=== PATIENT | male | born 1960 | race American Indian/Alaskan Native ===

== ENCOUNTER 2018-09-26 10:41 | Emergency (ER) | payer OTHER ==
[2018-09-26 10:54] VITALS: BP 150/93
[2018-09-26] MEDS ORDERED: TORADOL IM ONE (10:54)
--- NOTE | 2018-09-26 11:28 | Emergency Department Report ---
ED Fall HPI - General Chief Complaint: Fall Stated Complaint: BACK/HIP PAIN Time Seen by Provider: 09/26/18 10:49 Source: patient, EMS Mode of arrival: Stretcher Limitations: No Limitations - History of Present Illness Initial Comments: 58-year-old male the past medical hypertension and chronic back pain brought in the [facility] or ground-level fall this morning at the [facility]. Patient states she slipped and fell backwards. No head injury or LOC. He also denies neck pain, weakness, paresthesias. Pain is rated 10/10 in intensity greatest or back and right hip. Pain is worse with movement and palpation. No alleviating factors reported. Denies previous right hip injury. - Related Data Previous Rx's Medication Instructions Recorded Last Taken Type Ibuprofen [Motrin] 800 mg PO Q8HR PRN #30 tablet 09/26/18 Unknown Rx Allergies Allergy/AdvReac Type Severity Reaction Status Date / Time No Known Allergies Allergy Unverified 09/26/18 10:46 ED Review of Systems ROS: Stated complaint: BACK/HIP PAIN Other details as noted in HPI Comment: All other systems reviewed and negative ED Past Medical Hx - Past Medical History Previous Medical History?: Yes Hx Hypertension: Yes Additional medical history: Chronic back pain - Surgical History Past Surgical History?: No - Social History Smoking Status: Former Smoker Substance Use Type: None - Medications Home Medications: Home Medications Medication Instructions Recorded Confirmed Last Taken Type Ibuprofen [Motrin] 800 mg PO Q8HR PRN #30 tablet 09/26/18 Unknown Rx ED Physical Exam - General Limitations: No Limitations - Other Other exam information: General: No limitations, patient is alert in no acute distress Head exam: Atraumatic, normocephalic Eyes exam: Normal appearance ENT: Moist mucous membrane Neck exam: Normal inspection, full range of motion, no meningismus nontender Respiratory exam: Clear to auscultation bilateral, no wheezes, rales, crackles Cardiovascular: Normal rate and rhythm, normal heart sounds Abdomen: Soft, nondistended, and nontender, with normal bowel sounds, no rebound, or guarding Extremity: No deformity, no shortening, tenderness to right hip and pain with passive movement. 2+ DP pulse Back: Normal Inspection, full range of motion, diffuse midline and bilateral paraspinal muscle tenderness Neurologic: Alert, oriented x3, cranial nerves intact, no motor or sensory deficit Psychiatric: normal affect, normal mood Skin: Warm, dry, intact ED Course Vital Signs 09/26/18 09/26/18 09/26/18 10:43 10:53 11:08 Temperature 97.9 F Pulse Rate 81 Respiratory 16 16 16 Rate Blood Pressure 150/93 O2 Sat by Pulse 100 Oximetry ED Medical Decision Making - Radiology Data Radiology results: report reviewed X-ray right hip. Right hip abnormality. Severe osteoarthritis of the hips FINAL REPORT EXAM: XR SPINE LUMBOSACRAL 2-3V HISTORY: back pain s/p slip and fall TECHNIQUE: AP, lateral and lumbosacral spot views of the lumbar spine. PRIORS: None. FINDINGS: There are five lumbar type vertebral bodies. Normal alignment. No compression fracture. Anterior osteophyte formations are seen throughout the lumbar spine. There is disc space narrowing at L5-S1. Multilevel facet arthropathy is seen. The paravertebral soft tissues are normal. IMPRESSION: 1. No acute lumbar spine abnormality. 2. Multilevel degenerative disc disease and facet arthropathy of the lumbar spine. - Medical Decision Making No acute fracture identified. Patient given Toradol in ED Patient will be discharged on Motrin back to the [facility] - Differential Diagnosis fracture, contusion, sprain Critical Care Time: No Critical care attestation.: If time is entered above; I have spent that time in minutes in the direct care of this critically ill patient, excluding procedure time. ED Disposition Clinical Impression: Fall, Back contusion, Strain of right hip, Arthritis Disposition: TO HOME OR SELFCARE Is pt being admited?: No Does the pt Need Aspirin: No Condition: Stable Instructions: Acute Low Back Pain (ED), Hip Sprain (ED) Additional Instructions: Take the medication as prescribed. Follow up with your doctor or the clinic/doctor provided. Return if symptoms worsen as indicated by your discharge instructions Prescriptions: Ibuprofen [Motrin] 800 mg PO Q8HR PRN #30 tablet PRN Reason: Pain , Severe (7-10) Referrals: TERRY PURVIS JR, MD [Primary Care Provider] - 3-5 Days Time of Disposition: 13:20
--- NOTE | 2018-09-26 12:50 | XRay Report ---
FINAL REPORT EXAM: XR HIP 2-3V RT HISTORY: back pain s/p slip and fall TECHNIQUE: AP pelvis radiograph. Frog-leg radiograph of the right hip. PRIORS: None. FINDINGS: No fracture. No dislocation. Normal mineralization. No soft tissue abnormality. There is severe bilateral joint space loss, subchondral sclerosis and peripheral osteophyte formation s. IMPRESSION: 1. No acute pelvis or right hip abnormality. 2. Severe osteoarthritis of the hips.
--- NOTE | 2018-09-26 13:01 | XRay Report ---
FINAL REPORT EXAM: XR SPINE LUMBOSACRAL 2-3V HISTORY: back pain s/p slip and fall TECHNIQUE: AP, lateral and lumbosacral spot views of the lumbar spine. PRIORS: None. FINDINGS: There are five lumbar type vertebral bodies. Normal alignment. No compression fracture. Anterior osteophyte formations are seen throughout the lumbar spine. There is disc space narrowing at L5-S1. Multilevel facet arthropathy is seen. The paravertebral soft tissues are normal. IMPRESSION: 1. No acute lumbar spine abnormality. 2. Multilevel degenerative disc disease and facet arthropathy of the lumbar spine.
== END 2018-09-26 13:37 | disposition home or self-care (01) ==
LOC: ED 10:41
DX: S30.0XXA Contusion of lower back and pelvis, initial encounter (principal); S76.011A Strain of muscle, fascia and tendon of right hip, initial encounter; M19.90 Unspecified osteoarthritis, unspecified site; I10 Essential (primary) hypertension; G89.29 Other chronic pain; Z87.891 Personal history of nicotine dependence; W01.0XXA Fall on same level from slipping, tripping and stumbling without subsequent striking against object, initial encounter; Y93.89 Activity, other specified; Y92.89 Other specified places as the place of occurrence of the external cause; Y99.8 Other external cause status
CPT/HCPCS: 72100; 73502; 96372; 99283; J1885